=== PATIENT | female | born 1930 | race Caucasian/White ===

== ENCOUNTER → 2017-05-27 | Outpatient (CLI) | payer MEDICARE, OTHER ==
--- NOTE | 2017-05-29 12:51 | XCELERA REPORT ---
[address] [address] Upper Extremity Arterial Evaluation Name: ALEX JOHN Age: 86 yrs Gender: Female : 1930 Patient Status: Outpatient Patient Location: Study Date: 05/27/2017 03:06 PM Procedure: A duplex scan of the upper extremity arteries was performed on the right. Reason For Study: RUE PAIN S/P LT HRT CATH Ordering Physician: TAE CHEN Performed By: Arlene Rao Measurements and Calculations Right Left Prox SCLA PSV 68.3 cm/sec Ax A PSV 86.0 cm/sec Prox Brach A PSV 109.2 cm/sec Dist Brach A PSV 82.7 cm/sec Dist Rad A PSV 35.9 cm/sec Dist Ulnar A PSV 65.6 cm/sec Ax A PSV 86.0 cm/sec Dist Brach A PSV 82.7 cm/sec Dist Rad A PSV 35.9 cm/sec Dist Ulnar A PSV 65.6 cm/sec Prox Brach A PSV 109.2 cm/sec Right Side Arterial Evaluation Normal velocity and triphasic waveforms noted from the Common Femoral artery to the forearm vessels. 0 % stenosis . Interpretation Summary No hemodynamically significant lesions noted in the right upper extremity arteries, on duplex imaging, at rest. : TAE CHEN [place] >
== END ==
LOC: SP 14:31
PROVIDERS: ATTEND Internal Medicine Cardiovascular Disease
DX: M79.601 Pain in right arm (principal)
CPT/HCPCS: 93931